=== PATIENT | male | born 1960 | race Caucasian/White ===

== ENCOUNTER 2020-07-04 20:31 | Emergency (ER) | payer OTHER ==
[~2020-07-04] VITALS: Ht 182.9 cm; Wt 70.3 kg
[2020-07-05] MEDS ORDERED: KLONOPIN1 MG PO (00:36)
[2020-07-05 00:52] VITALS: BP 123/64
--- NOTE | 2020-07-06 07:41 | EKG ---
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: : 1960 Requested By: Bakari Matthews Order Number: [id number] MD: Oral Ramirez Measurements Intervals [place] Rate: 77 P: 59 MS: 159 QRS: -30 QRSD: 95 T: 62 QT: 409 QTc: 463 Interpretive Statements Sinus rhythm Frequent supraventricular complexes Left axis deviation RSR' in V1 or V2, probably normal variant Baseline wander in lead(s) II,V1 No previous ECG available for comparison Electronically Signed On 07-06-2020 7:41:04 [employer] by Oral Ramirez [email or web address] <ELECTRONICALLY SIGNED> By: Oral Ramirez MD, [facility] 07/06/20 0741 38 38 Oral Ramirez MD, [facility] /EPI
== END 2020-07-05 00:52 | disposition home or self-care (01) ==
LOC: ER 20:31
DX: F41.9 Anxiety disorder, unspecified (principal); F17.210 Nicotine dependence, cigarettes, uncomplicated

== ENCOUNTER 2021-03-23 20:39 | Emergency (ER) | payer OTHER ==
[~2021-03-23] VITALS: Ht 182.9 cm; Wt 72.6 kg
[~2021-03-23 20:39] MED LIST: KLONOPIN1 MG PO
[2021-03-23 23:06] LABS: ABSOLUTE NEUTROPHILS 10.3 thou/uL (1.4-8.2); BASOPHILS 1.3 % (0.0-2.0); EOSINOPHILS 0.2 % (0.0-3.0); HEMOGLOBIN 14.4 gm/dL (14.0-18.0); LYMPHOCYTES 10.6 % (24.0-44.0); MCH 32.1 pg (26.0-34.0); MCHC 33.5 g/dL (28.0-37.0); MCV 95.9 fL (80.0-100.0); MONOCYTES 8.3 % (1.0-8.0); PLATELET COUNT 369 thou/uL (150-400); POLYS 79.6 % (36.0-66.0); RBC 4.48 mil/uL (4.50-6.00); RDW 14.5 % (10.5-14.5)
[2021-03-23 23:12] LABS: ANION GAP 20 mmol/L (7-16); BUN 13 mg/dL (7-18); CALCIUM 9.3 mg/dL (8.5-10.1); CHLORIDE 95 mmol/L (98-107); CO2 21 mmol/L (21-32); CREATININE 0.9 mg/dL (0.7-1.3); GLUCOSE 83 mg/dL (74-106); POTASSIUM 4.7 mmol/L (3.5-5.1); SODIUM 136 mmol/L (136-145)
[2021-03-23 23:22] LABS: ALBUMIN 4.4 g/dL (3.4-5.0); DIRECT BILIRUBIN 0.1 mg/dL (<0.1-0.2); SGOT 126 U/L (15-37); SGPT 103 U/L (30-65); TOTAL BILIRUBIN 0.6 mg/dL (0.2-1.0); TOTAL PROTEIN 8.1 g/dL (6.4-8.2); TROPONIN-I <0.06 ng/mL (<0.06)
[2021-03-24] MEDS ORDERED: FLUOXETINE HCL20 M1 PO (01:19)
[2021-03-24] MEDS ORDERED: NORVASC5 MG PO (01:19)
[2021-03-24 01:45] VITALS: BP 172/94
--- NOTE | 2021-03-24 07:19 | EKG ---
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 : 1960 Requested By: Serina Salazar Order Number: [id number] MD: Joshua Campuzano Measurements Intervals [place] Rate: 83 P: 22 MT: 154 QRS: -43 QRSD: 95 T: 25 QT: 399 QTc: 469 Interpretive Statements Sinus rhythm RSR' in V1 or V2, probably normal variant Baseline wander in lead(s) V6 Compared to ECG 07/04/2020 20:39:55 Left-axis deviation no longer present Electronically Signed On 03-24-2021 7:19:38 CDT by Joshua Campuzano [email or web address] <ELECTRONICALLY SIGNED> By: Joshua Campuzano MD, [facility] 03/24/21718 44 44 Joshua Campuzano MD, [facility] /EPI
== END 2021-03-24 01:44 | disposition home or self-care (01) ==
LOC: ER 20:39
PROVIDERS: Emergency Medicine
DX: R07.89 Other chest pain (principal); F41.9 Anxiety disorder, unspecified; I10 Essential (primary) hypertension; F17.210 Nicotine dependence, cigarettes, uncomplicated; Z79.899 Other long term (current) drug therapy; Z88.8 Allergy status to other drugs, medicaments and biological substances